=== PATIENT | female | born 1960 | race Caucasian/White ===

== ENCOUNTER 2018-08-28 07:26 | Day surgery (SDC) | payer MEDICAID ==
[2018-08-28] MEDS ORDERED: Sodium Chloride 0.9% 10 ML Syringe FLUSH PRN (07:30)
[2018-08-28] MEDS ORDERED: Lactated Ringers 1,000 ML IV SCH (07:30)
[2018-08-28] MEDS ORDERED: Propofol 200 MG/20 ML SDV IV ONE (08:30)
[2018-08-28] MEDS ORDERED: Midazolam 1 MG/ML 2 ML SDV IV ONE (08:30)
--- NOTE | 2018-08-28 09:03 | PCM.OPNOTE ---
- General Post-Op/Procedure Note Date of Surgery/Procedure: 08/28/18 Operative Procedure(s): egd with bx Findings: irregular z line gastritis Pre Op Diagnosis: dysphagia Post-Op Diagnosis: irregular z line. gastritis Anesthesia Technique: MAC Primary Surgeon: Wing Kim Anesthesia Provider: Melodie Hunter Pathology: stomach and esophagus Complications: None Condition: Good Free Text/Narrative:: see dictation
--- NOTE | 2018-08-28 09:45 | OR ---
DATE OF OPERATION: 08/28/2018 SURGEON: Wing Kim MD PROCEDURE PERFORMED: Upper endoscopy with cold forceps biopsy. PREOPERATIVE DIAGNOSIS: History of dysphagia. POSTOPERATIVE DIAGNOSIS: Gastritis and has irregular Z-line. INDICATIONS FOR PROCEDURE: This is a 58-year-old white female who was referred with a history of some swallowing issues appeared to be consistent with almost globus pharyngeus. However, she was offered and accepted an EGD as part of the workup. DESCRIPTION OF PROCEDURE: After an excellent IV sedation was administered, the bite block was inserted. The flexible endoscope was passed without difficulty down the patient's esophagus into the stomach. The stomach was insufflated. Scope was passed through the pylorus and second portion of the duodenum and slowly withdrawn. The following findings were noted. Duodenum was unremarkable. Stomach demonstrated some mild gastritis, especially in the area of the antrum. Biopsies were taken. GE junction measured approximately 40 cm while there was no marked erythema. There was some irregularity to the Z-line. Circumferential biopsies were taken. The remainder of the esophageal exam was unremarkable. The patient tolerated the procedure well and was taken to recovery room. Results by letter. /[id number] /MODL
== END 2018-08-28 10:25 | disposition home or self-care (01) ==
LOC: FB.SDS 07:26
PROVIDERS: ATTEND Surgery
DX: K20.9 Esophagitis, unspecified (principal); K31.9 Disease of stomach and duodenum, unspecified; K22.8 Other specified diseases of esophagus; J45.909 Unspecified asthma, uncomplicated; F17.210 Nicotine dependence, cigarettes, uncomplicated; F32.9 Major depressive disorder, single episode, unspecified; R73.03 Prediabetes; K21.9 Gastro-esophageal reflux disease without esophagitis; Z79.84 Long term (current) use of oral hypoglycemic drugs; Z79.51 Long term (current) use of inhaled steroids; Z79.899 Other long term (current) drug therapy; Z88.5 Allergy status to narcotic agent; Z88.2 Allergy status to sulfonamides
CPT/HCPCS: 82962; 88305; 88313; 88342; J2250; J2704; J7120